=== PATIENT | female | born 1980 | race Caucasian/White ===

== ENCOUNTER → 2017-08-20 | Outpatient (CLI) | payer OTHER ==
[~2017-08-20] MED LIST: ACYC400 PO; ALBU90OI INH; AMIT50 PO; AMOX500 PO; ASPI81CH PO; FLUO10 PO; GABA300 PO; GABA600 PO; HPA LANOLIN40 GM TOP; HYDACE5 PO; IBUP600 PO; Macrobid 100 M100 MG PO; Mucinex600 MG PO; Norco 5-325 Ta1 EACH; OXYM.05NI; PENVK500 PO; PROM25S PR; Percocet 5-3251 EACH PO; RXPENVK250 PO; Tobrex5 ML BOTHEYES; VICODIN 5-3001 EACH PO
[2017-08-21 10:50] LABS: Candida species (DNA Probe) Positive (NEGATIVE); G. vaginalis (DNA Probe) Negative (NEGATIVE); T. vaginalis (DNA Probe) Negative (NEGATIVE)
== END | disposition home or self-care (01) ==
LOC: LAB 11:59
PROVIDERS: Advanced Practice Midwife
DX: N89.8 Other specified noninflammatory disorders of vagina (principal)
CPT/HCPCS: 87480; 87510; 87660

== ENCOUNTER → 2018-12-18 | Outpatient (CLI) | payer OTHER ==
[~2018-12-18] MED LIST changes: -ALBU90OI INH; -FLUO10 PO; -HPA LANOLIN40 GM TOP; -IBUP600 PO; -Norco 5-325 Ta1 EACH; -Percocet 5-3251 EACH PO
== END | disposition home or self-care (01) ==
LOC: LAB SHORT 16:03 → LAB 16:03
DX: Z34.93 Encounter for supervision of normal pregnancy, unspecified, third trimester (principal); Z3A.35 35 weeks gestation of pregnancy
CPT/HCPCS: 87081; 87653

== ENCOUNTER 2018-12-26 05:53 | Inpatient (IN) | payer OTHER ==
[2018-12-25 14:18] LABS: BASOPHILS ABSOLUTE AUTO 0.03 K/mm3 (0.00-0.23); BASOPHILS PERCENT AUTO 0 % (0-2); EOSINOPHILS ABSOLUTE AUTO 0.06 K/mm3 (0.00-0.68); EOSINOPHILS PERCENT AUTO 0 % (0-6); Hematocrit 35.4 % (33.0-51.0); Hemoglobin 11.2 g/dL (11.5-16.0); IMMATURE GRAN PERCENT AUTO 1 % (0-1); LYMPHOCYTES ABSOLUTE AUTO 2.05 K/mm3 (0.84-5.20); LYMPHOCYTES PERCENT AUTO 15 % (21-46); MONOCYTES ABSOLUTE AUTO 0.94 K/mm3 (0.16-1.47); MONOCYTES PERCENT AUTO 7 % (4-13); Mean Corpuscular HGB 28.4 pg (26.0-34.0); Mean Corpuscular HGB Conc 31.6 g/dL (31.5-36.5); Mean Corpuscular Volume 90 fL (80-100); Mean Platelet Volume 11.9 fL (9.1-12.4); NEUTROPHILS ABSOLUTE AUTO 10.88 K/mm3 (1.96-9.15); NEUTROPHILS PERCENT AUTO 77 % (41-73); Platelet Count 297 K/mm3 (150-400); RDW Standard Deviation 45.1 fL (35.1-46.3); Red Blood Cell Count 3.94 M/mm3 (3.80-5.20); White Blood Cell Count 14.16 K/mm3 (4.00-11.30)
[~2018-12-26] VITALS: Ht 162.6 cm; Wt 0.4 kg
--- NOTE | 2018-12-26 08:54 | NUR ---
12/26/18 0854 Darleen Bentley DELIVERY OF VIABLE FEMALE. APGARS 9/9. WEIGHT 6LBS 15OZ (3150 GRAMS). LENGTH 20 INCHES. HEAD 12.75 INCHES. CHEST 12.75 INCHES. CORD BLOOD AND CORD SEGMENT GIVEN TO JEN STEWART. CORD SEGMENT GIVEN TO RT STACEY. TRANSFERED TO [facility] PACU, REPORT GIVEN TO JEN STEWART.
[2018-12-26 09:06] LABS: U Amphetamine Screen Not Detected; U Barbituate Screen Not Detected; U Benzodiazapine Screen Not Detected; U Buprenorphine Screen Not Detected; U Cannabinoids Screen Not Detected; U Cocaine Screen Not Detected; U Methadone Screen Not Detected; U Methamphetamine Screen Not Detected; U Opiates Screen Not Detected; U Oxycodone Screen Not Detected; U Phencyclidine Screen Not Detected; U Propoxyphene Screen Not Detected
--- NOTE | 2018-12-26 09:32 | NUR ---
PACU FUNDAL CHECKS 0845 - FIRM, MIDLINE, 2 BELOW, RUBRA, MODERATE 0900 - FIRM, MIDLINE, AT UMBILICUS, RUBRA, SMALL 0915 - FIRM, MIDLINE, AT UBILICUS, RUBRA, SCANT
--- NOTE | 2018-12-26 13:30 | NUR ---
PT C/O PAIN DISCOMFORT, RN DID PERICARE AND NOTED THAT F/C WAS KINKED AND 500CC URINE DRAINED OUT OF TINEO, PT REPORTS MUCH BETTER, REQUESTS TO GO OUT TO SMOKE. OK IN WHEELCHAIR. IV SL, IVF DONE. PT FELLING FINE AFTER RETURNING FROM SMOKING.
--- NOTE | 2018-12-26 16:54 | NUR ---
REPORT TO JEN SHEFFIELD. PT RESTING IN BED, NB SLEEPING IN CRIB.
[2018-12-27 06:53] LABS: Hematocrit 31.8 % (33.0-51.0); Hemoglobin 10.3 g/dL (11.5-16.0); Mean Corpuscular HGB 28.9 pg (26.0-34.0); Mean Corpuscular HGB Conc 32.4 g/dL (31.5-36.5); Mean Corpuscular Volume 89 fL (80-100); Mean Platelet Volume 11.5 fL (9.1-12.4); Platelet Count 244 K/mm3 (150-400); RDW Coefficient Variation 14.2 % (11.7-14.2); RDW Standard Deviation 46.4 fL (35.1-46.3); Red Blood Cell Count 3.56 M/mm3 (3.80-5.20); White Blood Cell Count 14.55 K/mm3 (4.00-11.30)
--- NOTE | 2018-12-27 12:05 | NUR ---
REPORT TAKEN ASSUMED CARE
--- NOTE | 2018-12-27 13:43 | NUR ---
OFFERED SHOWER - TEACHING DONE R/T AMBULATION AND SHOWER RN TO RETURN AT 1500 TO CHECK ON PATIENT
--- NOTE | 2018-12-27 23:50 | NUR ---
PT CALLED NURSE IN TO DISCUSS PPD, SHE IS CONCERNED BECAUSE SHE STATES SHE FEELS LIKE CRYING ALL THE TIME AND THAT SHE FEELS LIKE PUNCHING HER SO IN THE FACE. RN ASSURED PT THAT IF SHE FEELS LIKE SHE NEEDS IT HER PROVIDER WILL BE NOTIFIED IN THE MORNING AND CAN START HER ON AN ANTIDEPRESSANT, BUT IN THE MEANTIME A FEW HOURS OF SLEEP WOULD PROBABLY HELP HER FEEL A LITTLE BETTER. PT MEDICATED FOR PAIN AND SETTLED IN FOR BED, RN AGREED NOT TO WAKE PT OR BABY UNTIL 4AM VS, PT AGREES TO CALL FOR NURSE IF SHE NEEDS ANYTHING AT ALL BEFORE THEN.
[2018-12-28] MEDS ORDERED: FLUO10 PO (11:18)
[2018-12-28] MEDS ORDERED: IBUP600 PO (11:19)
[2018-12-28] MEDS ORDERED: HPA LANOLIN40 GM TOP (11:19)
[2018-12-28] MEDS ORDERED: Percocet 5-3251 EACH PO (11:20)
--- NOTE | 2018-12-28 12:40 | NUR ---
No acute changes t/o shift. Printed d/c instructions and teaching reviewed w/pt. Questions answered to her satisfaction. ESBL clearance swab and urine collected and sent to lab. ID bands matched w/nb and verification form. Pt d/c'd home ambulatory to care of SO.
--- NOTE | 2018-12-28 14:49 | NUR ---
CONSULT. MOM HAS BEEN PUMPING A COUPLE TIMES AND INSTRUCT TO PUMP Q2 HOURS TO GET SUPPLY IN. BABY TO BREAST OCCASIONALLY, BUT NOT LATCHING WELL AND THEN FALLS ASLEEP. SHE HAS BEEN MOSTLY BOTTLE FEEDING FORMULA TO HIM. INSTRUCT HOW TO INTERPRET HIS RESPONSES, AND THAT HE WILL CONTINUE TO BE FRUSTRATED AT BREAST IF FORMULA GIVEN WHEN HE STARTS TO CRY, AND LARGER AMOUNTS OF FORMULA GIVEN. INSTRUCT HOW TO SWITCH HIM BACK TO BREAST WHEN MILK SUPPLY IS IN. INSTRUCT IN CHANGES TO EXPECT DURING THE FIRST WEEK WITH BABY AND WITH FEEDINGS AND REFERRED TO BF BROCHURE FOR PHOTOS AND INFORMATION. MOM NOT DEVOTED TO BF AND HAS HAD LOWER SUPPLY ISSUES BEFORE, BUT DID NOT BF REGULARLY EITHER.
== END 2018-12-28 12:45 | disposition home or self-care (01) | DRG 787 ==
LOC: BC 05:53
PROVIDERS: Family Medicine; ADMIT Obstetrics & Gynecology
PROC: 10D00Z1 Extraction of Products of Conception, Low, Open Approach (ICD-10-PCS; principal; 2018-12-26 07:30)
DX: O34.211 Maternal care for low transverse scar from previous cesarean delivery (principal); O99.324 Drug use complicating childbirth; O98.32 Other infections with a predominantly sexual mode of transmission complicating childbirth; N85.8 Other specified noninflammatory disorders of uterus; Z3A.39 39 weeks gestation of pregnancy; Z37.0 Single live birth; O99.824 Streptococcus B carrier state complicating childbirth; O99.334 Smoking (tobacco) complicating childbirth; F17.210 Nicotine dependence, cigarettes, uncomplicated; O99.214 Obesity complicating childbirth; E66.9 Obesity, unspecified; Z79.899 Other long term (current) drug therapy; Z88.1 Allergy status to other antibiotic agents; Z88.2 Allergy status to sulfonamides; F19.11 Other psychoactive substance abuse, in remission; A60.00 Herpesviral infection of urogenital system, unspecified
CPT/HCPCS: 36415; 85025; 85027; 86850; 86900; 86901; 87081; 87086; J1580; J1885; J2405; J2590; J2765; J3010; J7120

== ENCOUNTER 2019-01-18 11:05 | Emergency (ER) | payer OTHER ==
[~2019-01-18] VITALS: Ht 162.6 cm; Wt 83.2 kg
[~2019-01-18 11:05] MED LIST changes: +FLUO10 PO; +HPA LANOLIN40 GM TOP; +IBUP600 PO; +Percocet 5-3251 EACH PO
[2019-01-18] MEDS ORDERED: Norco 5-325 Ta1 EACH (11:19)
[2019-01-18] MEDS ORDERED: ALBU90OI INH (11:50)
== END 2019-01-18 12:25 | disposition home or self-care (01) ==
LOC: ER 11:05
DX: J06.9 Acute upper respiratory infection, unspecified (principal); Z88.2 Allergy status to sulfonamides; Z88.1 Allergy status to other antibiotic agents; Z79.899 Other long term (current) drug therapy; F17.210 Nicotine dependence, cigarettes, uncomplicated
CPT/HCPCS: 94640; 99283-25

== ENCOUNTER → 2019-03-03 | Outpatient (CLI) | payer OTHER ==
[~2019-03-03] MED LIST changes: +ALBU90OI INH; +Norco 5-325 Ta1 EACH
[2019-03-03 16:33] LABS: BASOPHILS ABSOLUTE AUTO 0.03 K/mm3 (0.00-0.23); BASOPHILS PERCENT AUTO 0 % (0-2); EOSINOPHILS ABSOLUTE AUTO 0.06 K/mm3 (0.00-0.68); EOSINOPHILS PERCENT AUTO 0 % (0-6); Hematocrit 34.9 % (33.0-51.0); Hemoglobin 11.7 g/dL (11.5-16.0); IMMATURE GRAN ABSOLUTE AUTO 0.06 K/mm3 (0.00-0.10); IMMATURE GRAN PERCENT AUTO 0 % (0-1); LYMPHOCYTES ABSOLUTE AUTO 2.21 K/mm3 (0.84-5.20); LYMPHOCYTES PERCENT AUTO 15 % (21-46); MONOCYTES ABSOLUTE AUTO 1.69 K/mm3 (0.16-1.47); MONOCYTES PERCENT AUTO 11 % (4-13); Mean Corpuscular HGB 28.6 pg (26.0-34.0); Mean Corpuscular HGB Conc 33.5 g/dL (31.5-36.5); Mean Corpuscular Volume 85 fL (80-100); NEUTROPHILS ABSOLUTE AUTO 10.79 K/mm3 (1.96-9.15); NEUTROPHILS PERCENT AUTO 73 % (41-73); Platelet Count 219 K/mm3 (150-400); RDW Coefficient Variation 17.7 % (11.7-14.2); RDW Standard Deviation 55.4 fL (35.1-46.3); Red Blood Cell Count 4.09 M/mm3 (3.80-5.20); White Blood Cell Count 14.84 K/mm3 (4.00-11.30)
[2019-03-03 16:37] LABS: Anion Gap 10 mmol/L (6-16); Blood Urea Nitrogen 9 mg/dL (8-24); CO2, Blood 25 mmol/L (21-32); Calcium, Blood 8.7 mg/dL (8.5-10.1); Chloride, Blood 99 mmol/L (98-108); Creatinine, Blood 0.75 mg/dL (0.40-1.00); Glomerular Filtration Rate >60 (60-); Glucose, Blood 97 mg/dL (70-99); Potassium, Blood 3.6 mmol/L (3.5-5.5); Sodium, Blood 134 mmol/L (136-145)
== END ==
LOC: LAB EV 16:26 → LAB SHORT 16:26
PROVIDERS: Emergency Medicine
DX: R10.9 Unspecified abdominal pain (principal)
CPT/HCPCS: 80048; 85025; 87077; 87086; 87186

== ENCOUNTER → 2020-07-13 | Outpatient (CLI) | payer SELFPAY ==
[~2020-07-13] MED LIST changes: +Bupropion HCl150 M2 PO; +GABA300; +Norethindrone0.35 MG PO; +ONDA4ODT MM
[2020-07-13 13:53] LABS: Source, Urine Clean Catch
[2020-07-13 15:25] LABS: Appearance, Urine Clear (Clear); Bilirubin, Urine Neg (Neg); Blood, Urine Neg (Neg); Color, Urine Yellow (P-Yellow); Glucose Qualitative, Urine Neg (Neg); Ketones, Urine Neg (Neg); Leukocyte Esterase, Urine 2+ (Neg); Nitrite, Urine Neg (Neg); Protein, Urine Neg (Neg); Urobilinogen, Urine NORM (Normal)
[2020-07-13 15:44] LABS: Bacteria Few /hpf; Mucus Mod (0-Heavy); Red Blood Cells, Urine 0-2 /hpf (0-2); Squamous Epithelial Cells Few /hpf (Few)
[2020-07-14 09:10] LABS: HBSAG SCREEN Negative (Negative); HIV SCREEN 4TH GENERATION WRFX Non Reactive (Non Reactive)
[2020-07-14 10:52] LABS: Candida species (DNA Probe) Negative (NEGATIVE); G. vaginalis (DNA Probe) Negative (NEGATIVE); T. vaginalis (DNA Probe) Positive (NEGATIVE)
[2020-07-15 01:10] LABS: CHLAMYDIA TRACHOMATIS, NAA Negative (Negative); HPV 16 Negative (Negative); HPV 18 Positive (Negative); HPV OTHER HR TYPES Positive (Negative); NEISSERIA GONORRHOEAE, NAA Negative (Negative)
== END | disposition home or self-care (01) ==
LOC: LAB SHORT 11:41 → LAB EV 11:41
PROVIDERS: Advanced Practice Midwife
DX: Z01.411 Encounter for gynecological examination (general) (routine) with abnormal findings (principal); Z11.3 Encounter for screening for infections with a predominantly sexual mode of transmission; N76.0 Acute vaginitis
CPT/HCPCS: 36415; 81001; 86592; 86803; 87086; 87340; 87389; 87480; 87491; 87510; 87591; 87624; 87625; 87660; G0123

== ENCOUNTER → 2020-08-02 | Outpatient (CLI) | payer OTHER ==
[2020-08-02 23:22] LABS: Candida species (DNA Probe) Negative (NEGATIVE); G. vaginalis (DNA Probe) Positive (NEGATIVE); T. vaginalis (DNA Probe) Positive (NEGATIVE)
== END | disposition home or self-care (01) ==
LOC: LAB SHORT 11:48 → PLD 11:48
PROVIDERS: Obstetrics & Gynecology
DX: A59.00 Urogenital trichomoniasis, unspecified (principal)
CPT/HCPCS: 87480; 87510; 87660

== ENCOUNTER → 2020-08-23 | Outpatient (CLI) | payer OTHER ==
[2020-08-24 12:03] LABS: Candida species (DNA Probe) Negative (NEGATIVE); G. vaginalis (DNA Probe) Positive (NEGATIVE); T. vaginalis (DNA Probe) Positive (NEGATIVE)
== END | disposition home or self-care (01) ==
LOC: LAB SHORT 11:15 → LAB 11:15
PROVIDERS: Obstetrics & Gynecology
DX: A59.01 Trichomonal vulvovaginitis (principal)
CPT/HCPCS: 87070; 87147; 87205; 87480; 87510; 87660

== ENCOUNTER → 2022-10-16 | Outpatient (CLI) | payer OTHER ==
[2022-10-17 15:11] LABS: HPV 16 Negative (Negative); HPV 18 Negative (Negative); HPV OTHER HR TYPES Negative (Negative)
[2022-10-18 15:08] LABS: CHLAMYDIA BY NAA Negative (Negative); GONOCOCCUS BY NAA Negative (Negative); TRICH VAG BY NAA Negative (Negative)
== END | disposition home or self-care (01) ==
LOC: LAB SHORT 16:01 → LAB 16:01
PROVIDERS: Obstetrics & Gynecology
DX: Z01.419 Encounter for gynecological examination (general) (routine) without abnormal findings (principal); Z11.3 Encounter for screening for infections with a predominantly sexual mode of transmission
CPT/HCPCS: 87624; G0145

== ENCOUNTER → 2024-10-13 | Outpatient (CLI) | payer OTHER | END | disposition home or self-care (01) | LOC: LAB 12:50 → LAB SHORT 12:50 | DX: Z34.93 Encounter for supervision of normal pregnancy, unspecified, third trimester (principal) | CPT/HCPCS: 87081; 87150 ==

== ENCOUNTER 2024-11-06 08:02 | Inpatient (IN) | payer OTHER ==
[2024-11-06] VITALS (23 sets, daily range): BP systolic 90–127; BP diastolic 56–87
[~2024-11-06] VITALS: Ht 162.6 cm; Wt 93.6 kg
[2024-11-06] MEDS ORDERED: BUPRENORPHINE HC2 MG SL (08:09)
[2024-11-06] MEDS ORDERED: PRENATAL TABLE1 EAC2 PO (08:10)
[2024-11-06] MEDS ORDERED: Lactated Ringer's 1,000 ML IV SCH ×3 (08:25→12:05)
[2024-11-06] MEDS ORDERED: Metoclopramide HCl 5MG / ML 2ML Vial IV ONE (08:25)
[2024-11-06] MEDS ORDERED: Clindamycin 900mg in D5W 50ML 50 ML IV ONE (08:25)
[2024-11-06] MEDS ORDERED: Citric Acid/Sodium Citrate 30 ML BTL PO SCH (08:25)
[2024-11-06 08:47] LABS: BASOPHILS ABSOLUTE AUTO 0.02 K/mm3 (0.00-0.23); BASOPHILS PERCENT AUTO 0 % (0-2); EOSINOPHILS ABSOLUTE AUTO 0.09 K/mm3 (0.00-0.68); EOSINOPHILS PERCENT AUTO 1 % (0-6); Hematocrit 34.8 % (33.0-51.0); Hemoglobin 12.2 g/dL (11.5-16.0); IMMATURE GRAN ABSOLUTE AUTO 0.06 K/mm3 (0.00-0.10); IMMATURE GRAN PERCENT AUTO 1 % (0-1); LYMPHOCYTES ABSOLUTE AUTO 2.22 K/mm3 (0.84-5.20); LYMPHOCYTES PERCENT AUTO 23 % (21-46); MONOCYTES ABSOLUTE AUTO 0.61 K/mm3 (0.16-1.47); MONOCYTES PERCENT AUTO 6 % (4-13); Mean Corpuscular HGB 32.6 pg (26.0-34.0); Mean Corpuscular HGB Conc 35.1 g/dL (31.5-36.5); Mean Corpuscular Volume 93 fL (80-100); Mean Platelet Volume 11.2 fL (9.1-12.4); NEUTROPHILS PERCENT AUTO 69 % (41-73); Platelet Count 195 K/mm3 (150-400); RDW Coefficient Variation 13.2 % (11.7-14.2); RDW Standard Deviation 45.1 fL (35.1-46.3); Red Blood Cell Count 3.74 M/mm3 (3.80-5.20)
[2024-11-06] MEDS ORDERED: buprenorphine HCL 2 MG TAB.SUBL SL SCH (09:00)
[2024-11-06] MEDS ORDERED: Prenatal Vit/FE Fumarate/FA 1 Tab PO SCH (09:00)
[2024-11-06] MEDS ORDERED: Morphine Sulfate/PF 1 MG/ML 10MLVIAL ONE (09:45)
[2024-11-06] MEDS ORDERED: FentaNYL Citrate 50 MCG/ML 2 ML Injection ONE (09:46)
[2024-11-06] MEDS ORDERED: Phenylephrine HCl 100 MCG/ML-NS 10MLSYR (1MG/10ML) ONE (09:47)
[2024-11-06] MEDS ORDERED: ePHEDrine Sulfate 50 MG/ML 1ML Injection ONE (09:51)
[2024-11-06] MEDS ORDERED: Oxytocin 10 Unit / ML Vial ONE (10:26)
[2024-11-06] MEDS ORDERED: Ondansetron HCl 2 MG / ML 2ML Vial ONE (10:59)
[2024-11-06] MEDS ORDERED: propofoL 20 ML IV ONE (11:05)
--- NOTE | 2024-11-06 11:13 | NUR ---
11/06/24 1113 s,Kimberly VIABLE FEMALE 9/9 APGARS BORN AT 1037. HEAD 13IN, CHEST 13, LENGHT 19.5 IN, WEIGHT [id number] 6LB 8OZ
[2024-11-06] MEDS ORDERED: Acetaminophen 500 MG Tab PO PRN (11:55)
[2024-11-06] MEDS ORDERED: Promethazine HCl 25 MG Supp PR PRN (11:55)
[2024-11-06] MEDS ORDERED: Ketorolac Tromethamine 30mg Vial IV SCH (12:00)
[2024-11-06] MEDS ORDERED: Misoprostol 200 MCG Tab PR PRN (12:00)
[2024-11-06] MEDS ORDERED: Simethicone 80 MG Chew PO PRN (12:00)
[2024-11-06] MEDS ORDERED: Morphine Sulfate 10 MG/ML 1MLSYR IM PRN (12:00)
[2024-11-06] MEDS ORDERED: Promethazine HCl 12.5 MG Supp PR PRN (12:00)
[2024-11-06] MEDS ORDERED: Ondansetron HCl 2 MG / ML 2ML Vial IV PRN (12:00)
[2024-11-06] MEDS ORDERED: OxyCODONE 7.5 mg/Acetam 325 mg TABLET PO PRN (12:00)
[2024-11-06] MEDS ORDERED: OXYTOCIN/RINGER'S LACTATE 500 ML IV SCH (12:00)
[2024-11-06] MEDS ORDERED: Lanolin Cream TOP PRN (12:00)
[2024-11-06] MEDS ORDERED: Promethazine HCl 25 MG Tab PO PRN (12:05)
[2024-11-06] MEDS ORDERED: Methylergonovine Maleate 0.2MG / ML 1ML Amp IM PRN (12:05)
[2024-11-06] MEDS ORDERED: Magnesium Hydroxide Conc 10 ML UDC PO PRN (12:05)
[2024-11-06] MEDS ORDERED: Tranexamic Acid 100 ML IV SCH (12:20)
[2024-11-06] MEDS ORDERED: Gabapentin 300 MG Cap PO SCH (14:00)
[2024-11-06] MEDS ORDERED: Clindamycin 600mg in D5W 50 ML IV SCH (16:00)
[2024-11-06] MEDS ORDERED: Ibuprofen 400 MG Tab PO SCH (16:00)
[2024-11-06] MEDS ORDERED: Docusate Sodium 100 MG Cap PO SCH (21:00)
[2024-11-07 00:35] VITALS: BP 106/57
[2024-11-07 05:41] VITALS: BP 100/57
[2024-11-07 07:25] LABS: BASOPHILS ABSOLUTE AUTO 0.01 K/mm3 (0.00-0.23); BASOPHILS PERCENT AUTO 0 % (0-2); EOSINOPHILS ABSOLUTE AUTO 0.13 K/mm3 (0.00-0.68); EOSINOPHILS PERCENT AUTO 1 % (0-6); Hematocrit 31.1 % (33.0-51.0); Hemoglobin 10.7 g/dL (11.5-16.0); IMMATURE GRAN ABSOLUTE AUTO 0.05 K/mm3 (0.00-0.10); IMMATURE GRAN PERCENT AUTO 1 % (0-1); LYMPHOCYTES ABSOLUTE AUTO 1.56 K/mm3 (0.84-5.20); LYMPHOCYTES PERCENT AUTO 17 % (21-46); MONOCYTES ABSOLUTE AUTO 0.74 K/mm3 (0.16-1.47); MONOCYTES PERCENT AUTO 8 % (4-13); Mean Corpuscular HGB 32.7 pg (26.0-34.0); Mean Corpuscular HGB Conc 34.4 g/dL (31.5-36.5); Mean Corpuscular Volume 95 fL (80-100); Mean Platelet Volume 11.2 fL (9.1-12.4); NEUTROPHILS ABSOLUTE AUTO 6.57 K/mm3 (1.96-9.15); NEUTROPHILS PERCENT AUTO 73 % (41-73); Platelet Count 180 K/mm3 (150-400); RDW Coefficient Variation 13.4 % (11.7-14.2); RDW Standard Deviation 46.7 fL (35.1-46.3); Red Blood Cell Count 3.27 M/mm3 (3.80-5.20); White Blood Cell Count 9.06 K/mm3 (4.00-11.30)
[2024-11-07] MEDS ORDERED: Ketorolac Tromethamine 30mg Vial IV ONE (08:15)
[2024-11-07 08:20] VITALS: BP 105/59
[2024-11-07] MEDS ORDERED: buprenorphine HCL 2 MG TAB.SUBL SL ONE (13:00)
[2024-11-07] MEDS ORDERED: Magnesium Hydroxide Conc 10 ML UDC PO SCH (13:00)
[2024-11-07] MEDS ORDERED: Ibuprofen 400 MG Tab PO SCH (15:00)
[2024-11-07 15:26] VITALS: BP 100/60
[2024-11-07] MEDS ORDERED: buprenorphine HCL 2 MG TAB.SUBL SL SCH (17:00)
[2024-11-07 19:32] VITALS: BP 98/55
--- NOTE | 2024-11-08 00:05 | NUR ---
Patient asleep with baby in arms. Roy loosely wrapped and covering baby's face. RN educated patient that baby needs to be in bassinet when she is sleeping. Patient states understanding. RN re-swaddled baby and placed in bassinet.
[2024-11-08 00:08] VITALS: BP 100/59
[2024-11-08 03:28] VITALS: BP 112/63
[2024-11-08 08:32] VITALS: BP 95/53
[2024-11-08] MEDS ORDERED: buprenorphine HCL 2 MG TAB.SUBL SL SCH (09:00)
--- NOTE | 2024-11-08 11:32 | NUR ---
[facility] CALLED PER POLICY. THIS RN SPOKE WITH RODRÍGUEZ TO DISCUSS SCREENING. NOTIFIED OF CURRENT BUPENORPHINE USE AND THAT SHE IS TAKING PRESCRIBED MEDICATION. ALSO NOTIFIED OF PAST DRUG USE AND THAT PT HAS BEEN SOBER SINCE 2020. DISCUSSED SAFE SLEEP, RN DID NOTIFY THEM THAT THE MOM HAS BEEN CAUGHT SLEEPING WTH THE IN THE BED TWICE AND THAT DAD HAS ONCE. BOTH PARENTS EDUCATED ON PUTTING IN BASSINET AND ARE RECEPTIVE. PER RODRÍGUEZ, CASE CLOSED AT SCREENING AND NO FURTHER FOLLOW UP WILL BE NEEDED. SCREENING ID# [id number].
[2024-11-08 11:39] VITALS: BP 102/58
[2024-11-08] MEDS ORDERED: Magnesium Hydroxide Conc 10 ML UDC PO PRN (14:45)
[2024-11-08] MEDS ORDERED: DULCOLAX400 MG/5 M PO (16:32)
[2024-11-08] MEDS ORDERED: IBUP800 PO (16:32)
[2024-11-08] MEDS ORDERED: COLACE100 MG PO (16:32)
[2024-11-08] MEDS ORDERED: Percocet 7.5-31 EACH PO (16:33)
[2024-11-08 16:47] VITALS: BP 115/73
[2024-11-08 19:40] VITALS: BP 114/57
[2024-11-09 00:46] VITALS: BP 119/69
[2024-11-09 04:23] VITALS: BP 116/69
[2024-11-09 07:25] VITALS: BP 115/69
[2024-11-09] MEDS ORDERED: Diphth,Pertuss(Acell),Tet Vac 0.5 ML VIAL IM SCH (08:55)
[2024-11-09] MEDS ORDERED: FLU VACC TS2024-25(6MOS UP)/PF 45 MCG/0.5 ML SYRINGE IM SCH (08:55)
[2024-11-09 10:13] LABS: HEPATITIS B SURFACE ANTIBODY >1000.00 IU/L; HEPATITIS B SURFACE ANTIGEN Negative (Negative); HEPATITIS BE ANTIBODY Negative (Negative); HEPATITIS BE ANTIGEN Negative (Negative)
[2024-11-09 12:17] VITALS: BP 113/64
[2024-11-09 17:08] LABS: HEPATITIS C AB CIA INTERP Negative (Negative); HEPATITIS C ANTIBODY CIA INDEX 0.03 IV
[2024-11-09 18:06] VITALS: BP 126/75
== END 2024-11-09 18:00 | disposition home or self-care (01) | DRG 784 ==
LOC: BC 08:02
PROVIDERS: ADMIT Obstetrics & Gynecology
PROC: 10D00Z1 Extraction of Products of Conception, Low, Open Approach (ICD-10-PCS; principal; 2024-11-06 10:00)
PROC: 0UB70ZZ Excision of Bilateral Fallopian Tubes, Open Approach (ICD-10-PCS; 2024-11-06 10:00)
DX: O34.211 Maternal care for low transverse scar from previous cesarean delivery (principal); F11.20 Opioid dependence, uncomplicated; O99.324 Drug use complicating childbirth; Z30.2 Encounter for sterilization; Z3A.39 39 weeks gestation of pregnancy; Z90.89 Acquired absence of other organs; Z98.890 Other specified postprocedural states; Z88.2 Allergy status to sulfonamides; O99.344 Other mental disorders complicating childbirth; Z88.8 Allergy status to other drugs, medicaments and biological substances; O99.02 Anemia complicating childbirth; Z37.0 Single live birth; F41.8 Other specified anxiety disorders
CPT/HCPCS: 36415; 85025; 86707; 86803; 86850; 86900; 86901; 87340; 87350; 88302; 90715; A9270; J1885; J2274; J2371; J2405; J2590; J2704; J3010; J7120

== ENCOUNTER → 2024-11-26 | Outpatient (CLI) | payer OTHER ==
[~2024-11-26] MED LIST changes: +BUPRENORPHINE HC2 MG SL; +COLACE100 MG PO; +DULCOLAX400 MG/5 M PO; +IBUP800 PO; +PRENATAL TABLE1 EAC2 PO; +Percocet 7.5-31 EACH PO
[2024-11-26 14:46] LABS: Source, Urine Voided
[2024-11-26 18:15] LABS: Appearance, Urine Hazy (Clear); Bilirubin, Urine Neg (Neg); Blood, Urine 5+ (Neg); Color, Urine Pale Yellow (P-Yellow); Glucose Qualitative, Urine Neg (Neg); Ketones, Urine Neg (Neg); Leukocyte Esterase, Urine 3+ (Neg); Nitrite, Urine Neg (Neg); Protein, Urine 3+ (Neg); Urobilinogen, Urine NORM (Normal)
[2024-11-26 18:25] LABS: Bacteria Mod /hpf; Red Blood Cells, Urine 0-2 /hpf (0-2); Squamous Epithelial Cells Few /hpf (Few); Transitional Epithelial Cells Rare /hpf (0-Rare); White Blood Cells, Urine 25-50 /hpf (0-5)
== END ==
LOC: LAB 14:43 → LAB SHORT 14:43
PROVIDERS: Advanced Practice Midwife
DX: R30.0 Dysuria (principal); O90.0 Disruption of cesarean delivery wound
CPT/HCPCS: 81001; 87070; 87077; 87086; 87186; 87205

== ENCOUNTER → 2024-12-15 | Outpatient (CLI) | payer OTHER ==
[2024-12-15 19:05] LABS: Source, Urine Clean Catch
[2024-12-15 20:07] LABS: Appearance, Urine Clear (Clear); Bilirubin, Urine Neg (Neg); Blood, Urine Neg (Neg); Glucose Qualitative, Urine Neg (Neg); Ketones, Urine Neg (Neg); Leukocyte Esterase, Urine Neg (Neg); Nitrite, Urine Neg (Neg); Protein, Urine Neg (Neg); Specific Gravity, Urine 1.005 (1.003-1.022); Urobilinogen, Urine NORM (Normal)
[2024-12-15 20:14] LABS: Color, Urine Pale Yellow (P-Yellow)
== END ==
LOC: LAB 19:03 → LAB SHORT 19:03
PROVIDERS: Advanced Practice Midwife
DX: Z87.440 Personal history of urinary (tract) infections (principal)
CPT/HCPCS: 81003; 87086

== ENCOUNTER → 2025-07-06 | Outpatient (CLI) | payer OTHER ==
[2025-07-06 19:38] LABS: Influenza A/2009-H1 Not Detected (NOT DETECT); SARS-Cov-2 (COVID-19), BioFire Not Detected (NOT DETECT)
== END ==
LOC: LAB SHORT 15:41 → LAB 15:41
PROVIDERS: Nurse Practitioner Family
DX: N39.0 Urinary tract infection, site not specified (principal); J02.9 Acute pharyngitis, unspecified; J02.0 Streptococcal pharyngitis
CPT/HCPCS: 0202U; 87077; 87086; 87186